=== PATIENT | female | born 1975 | race Caucasian/White ===

== ENCOUNTER → 2018-03-30 10:54 | Outpatient (CLI) | payer MEDICAID, SELFPAY ==
--- NOTE | 2018-03-30 10:56 | MM_ITS ---
MM Dig mamm BI DX w/CAD, US breast RT complete INDICATION: Right breast lump ORDERING PHYSICIAN: Ortiz Flores MD PATIENT AGE: 42 years COMPARISON: 12/24/2014 TECHNIQUE: Diagnostic mammogram performed with problem-solving views in right breast ultrasound FINDINGS: There is dense fibroglandular tissue. Palpable abnormality is reported in the upper outer right breast were a marker was placed. No discrete mammographic abnormality evident in this region. No malignant appearing mass or malignant appearing microcalcification. The left breast has an unremarkable appearance. Right breast ultrasound: Unremarkable. No cystic or solid lesions demonstrated. Small nodes in the right axilla. IMPRESSION: Negative bilateral mammogram and right breast ultrasound. No evidence of malignancy BI-RADS Category: 1 Negative RECOMMENDED FOLLOW-UP: 1YR - 1 YEAR FOLLOW-UP Negative mammogram and negative ultrasound does not exclude the possibility of malignancy especially in this patient with dense breast tissue. If there is indeed a palpable nodule dimension be managed on clinical basis. (A letter has been sent to the patient regarding results of the study.)
== END ==
PROVIDERS: Family Provider Emergency Medicine; PCP Emergency Medicine; Visit Provider Emergency Medicine
DX: N63.11 Unspecified lump in the right breast, upper outer quadrant (principal)
CPT/HCPCS: 76641; 77066

== ENCOUNTER → 2021-07-28 08:08 | Outpatient (CLI) | payer MEDICAID, SELFPAY | PROVIDERS: PCP Emergency Medicine; Visit Provider Nurse Practitioner | DX: Z20.822 Contact with and (suspected) exposure to COVID-19 (principal) | CPT/HCPCS: C9803; U0003; U0005 ==

== ENCOUNTER → 2021-08-02 12:37 | Outpatient (CLI) | payer MEDICAID, SELFPAY | PROVIDERS: PCP Emergency Medicine; Visit Provider Nurse Practitioner | DX: Z20.822 Contact with and (suspected) exposure to COVID-19 (principal) | CPT/HCPCS: C9803; U0003; U0005 ==

== ENCOUNTER → 2021-08-11 17:05 | Outpatient (CLI) | payer MEDICAID, SELFPAY ==
[2021-08-11 19:54] LABS: Barbiturates Screen,Urine Negative ng/ml (<200); Benzodiazepines Screen,Urine Negative ng/ml (<200)
[2021-08-11 19:55] LABS: Cannabinoid Screen,Urine Negative ng/ml (<50)
[2021-08-11 19:56] LABS: Cocaine Screen,Urine Negative ng/ml (<300)
[2021-08-11 19:57] LABS: Methadone Screen,Urine Negative ng/ml (<300); Opiate Screen,Urine Negative ng/ml (<300)
[2021-08-11 19:59] LABS: Phencyclidine Screen,Urine Negative ng/ml (<25)
[2021-08-11 20:01] LABS: Amphetamine/Metha Screen,Urine Negative ng/ml (<1000)
== END ==
PROVIDERS: Visit Provider Physician Assistant Medical
DX: F11.20 Opioid dependence, uncomplicated (principal); F32.2 Major depressive disorder, single episode, severe without psychotic features; F41.1 Generalized anxiety disorder; F14.21 Cocaine dependence, in remission
CPT/HCPCS: 80305

== ENCOUNTER → 2021-08-18 16:24 | Outpatient (CLI) | payer MEDICAID, SELFPAY ==
[2021-08-18 16:59] LABS: Basophils # 0.1 K/mm3 (0-0.2); Eosinophils # 0.1 K/mm3 (0.0-0.4); Eosinophils % 2.3 % (0.1-12.0); Hematocrit 33.5 % (37.0-47.0); Hemoglobin 10.8 g/dL (12.2-16.2); Lymphocytes # 1.9 K/mm3 (0.7-4.5); Lymphocytes % 34.7 % (10-50); Mean Corpuscular HGB Conc 32.2 g/dL (31.8-35.4); Mean Corpuscular Hemoglobin 25.4 pg (27.0-31.2); Mean Corpuscular Volume 78.8 fl (81-99); Mean Platelet Volume 10.2 fl (7.4-10.4); Monocytes # 0.2 K/mm3 (0.1-1.0); Monocytes % 4.4 % (1.7-9.3); Neutrophils # 3.2 K/mm3 (1.8-7.8); Neutrophils % 57.6 % (37.0-80.0); Platelet Count 206 K/mm3 (142-424); Red Blood Count 4.25 M/mm3 (4.20-5.40); Red Cell Distribution Width 15.7 % (11.5-17.5); White Blood Count 5.5 K/mm3 (4.8-10.8)
[2021-08-18 17:12] LABS: Barbiturates Screen,Urine Negative ng/ml (<200)
[2021-08-18 17:13] LABS: Benzodiazepines Screen,Urine Negative ng/ml (<200); Chloride 101 mmol/L (98-107); Potassium 3.7 mmoL/L (3.5-5.1); Sodium 136 mmol/L (136-145)
[2021-08-18 17:14] LABS: Amphetamine/Metha Screen,Urine Negative ng/ml (<1000); Cannabinoid Screen,Urine Negative ng/ml (<50)
[2021-08-18 17:15] LABS: Cocaine Screen,Urine Negative ng/ml (<300); Methadone Screen,Urine Negative ng/ml (<300)
[2021-08-18 17:16] LABS: Alanine Aminotransferase 16 U/L (12-78); Albumin/Globulin Ratio 1.5 (1.1-1.8); Alkaline Phosphatase 52 U/L (38-126); Anion Gap 10.7 mEq/L (5-15); Aspartate Amino Transferase 25 U/L (14-36); Bilirubin,Total 0.3 mg/dl (0.2-1.3); Blood Urea Nitrogen 6 mg/dl (7-17); Carbon Dioxide 28 mmol/L (22.0-30.0); Estimated Glomerular Filt Rate 108 ml/min (>60); GFR (African American) 130 ML/MIN (>60); Globulin 2.7 g/dL (1.3-3.2); Opiate Screen,Urine Negative ng/ml (<300); Total Protein,Serum 6.7 g/dl (6.3-8.2)
[2021-08-18 17:17] LABS: Calcium 8.8 mg/dl (8.4-10.2); Glucose 113 mg/dl (74-100); Phencyclidine Screen,Urine Negative ng/ml (<25)
[2021-08-18 17:48] LABS: Thyroid Stimulating Hormone 0.83 uIU/mL (0.465-4.68)
[2021-08-20 11:18] LABS: HIV Screen 4th Generation wRfx Non Reactive (Non Reactive); Hep A Ab, IgM Negative (Negative); Hepatitis B Core Antibody IgM Negative (Negative); Hepatitis B Surface Antigen Negative (Negative); Hepatitis C Antibody <0.1 s/co ratio (0.0-0.9); Rapid Plasma Reagin Ab Titer Non Reactive (NonRea<1:1)
[2021-08-23 12:44] LABS: Neisseria gonorrhoeae, NAA Negative (Negative)
[2021-08-26 10:19] LABS: Miscellaneous Test SEE COMMENTS
== END ==
PROVIDERS: Visit Provider Physician Assistant Medical
DX: F11.20 Opioid dependence, uncomplicated (principal); F32.2 Major depressive disorder, single episode, severe without psychotic features; F41.1 Generalized anxiety disorder; F14.21 Cocaine dependence, in remission; F13.21 Sedative, hypnotic or anxiolytic dependence, in remission; F51.5 Nightmare disorder; G47.00 Insomnia, unspecified; Z72.51 High risk heterosexual behavior
CPT/HCPCS: 36415; 80053; 80074; 80305; 84443; 85025; 86592; 86703; 87591; G0432

== ENCOUNTER → 2021-08-24 16:09 | Outpatient (CLI) | payer MEDICAID, SELFPAY ==
[2021-08-24 19:13] LABS: Benzodiazepines Screen,Urine Negative ng/ml (<200)
[2021-08-24 19:14] LABS: Amphetamine/Metha Screen,Urine Negative ng/ml (<1000)
[2021-08-24 19:15] LABS: Barbiturates Screen,Urine Negative ng/ml (<200); Cannabinoid Screen,Urine Negative ng/ml (<50)
[2021-08-24 19:16] LABS: Cocaine Screen,Urine Negative ng/ml (<300)
[2021-08-24 19:17] LABS: Methadone Screen,Urine Negative ng/ml (<300); Opiate Screen,Urine Negative ng/ml (<300)
[2021-08-24 19:18] LABS: Phencyclidine Screen,Urine Negative ng/ml (<25)
== END ==
PROVIDERS: PCP Emergency Medicine; Visit Provider Physician Assistant Medical
DX: F11.20 Opioid dependence, uncomplicated (principal); F32.2 Major depressive disorder, single episode, severe without psychotic features; F41.1 Generalized anxiety disorder; F14.21 Cocaine dependence, in remission; F13.21 Sedative, hypnotic or anxiolytic dependence, in remission; F51.5 Nightmare disorder; G47.00 Insomnia, unspecified; Z72.51 High risk heterosexual behavior
CPT/HCPCS: 80305

== ENCOUNTER → 2021-09-01 15:46 | Outpatient (CLI) | payer MEDICAID, SELFPAY ==
[2021-09-01 17:19] LABS: Benzodiazepines Screen,Urine Negative ng/ml (<200)
[2021-09-01 17:20] LABS: Amphetamine/Metha Screen,Urine Negative ng/ml (<1000); Barbiturates Screen,Urine Negative ng/ml (<200)
[2021-09-01 17:21] LABS: Cannabinoid Screen,Urine Negative ng/ml (<50)
[2021-09-01 17:22] LABS: Cocaine Screen,Urine Negative ng/ml (<300); Methadone Screen,Urine Negative ng/ml (<300)
[2021-09-01 17:23] LABS: Opiate Screen,Urine Negative ng/ml (<300); Phencyclidine Screen,Urine Negative ng/ml (<25)
== END ==
PROVIDERS: PCP Emergency Medicine; Visit Provider Physician Assistant Medical
DX: F11.20 Opioid dependence, uncomplicated (principal)
CPT/HCPCS: 80305

== ENCOUNTER → 2021-10-20 17:30 | Outpatient (CLI) | payer MEDICAID, SELFPAY ==
[2021-10-20 18:26] LABS: Basophils # 0.1 K/mm3 (0-0.2); Basophils % 1.4 % (0.1-2.0); Eosinophils # 0.2 K/mm3 (0.0-0.4); Eosinophils % 2.7 % (0.1-12.0); Hematocrit 32.7 % (37.0-47.0); Hemoglobin 10.7 g/dL (12.2-16.2); Lymphocytes # 2.3 K/mm3 (0.7-4.5); Lymphocytes % 39.7 % (10-50); Mean Corpuscular HGB Conc 32.6 g/dL (31.8-35.4); Mean Corpuscular Hemoglobin 24.9 pg (27.0-31.2); Mean Corpuscular Volume 76.3 fl (81-99); Mean Platelet Volume 10.6 fl (7.4-10.4); Monocytes # 0.4 K/mm3 (0.1-1.0); Monocytes % 6.2 % (1.7-9.3); Neutrophils # 2.9 K/mm3 (1.8-7.8); Platelet Count 230 K/mm3 (142-424); Red Blood Count 4.29 M/mm3 (4.20-5.40); Red Cell Distribution Width 16.9 % (11.5-17.5); White Blood Count 5.9 K/mm3 (4.8-10.8)
[2021-10-20 18:31] LABS: Chloride 105 mmol/L (98-107); Potassium 3.3 mmoL/L (3.5-5.1); Sodium 137 mmol/L (136-145)
[2021-10-20 18:34] LABS: Alanine Aminotransferase 16 U/L (12-78); Albumin/Globulin Ratio 1.5 (1.1-1.8); Alkaline Phosphatase 55 U/L (38-126); Anion Gap 9.3 mEq/L (5-15); Aspartate Amino Transferase 26 U/L (14-36); Bilirubin,Total 0.3 mg/dl (0.2-1.3); Blood Urea Nitrogen 8 mg/dl (7-17); Carbon Dioxide 26 mmol/L (22.0-30.0); Estimated Glomerular Filt Rate 77 ml/min (>60); GFR (African American) 93 ML/MIN (>60); Globulin 2.6 g/dL (1.3-3.2); Total Protein,Serum 6.6 g/dl (6.3-8.2)
[2021-10-20 18:35] LABS: Calcium 8.4 mg/dl (8.4-10.2); Glucose 83 mg/dl (74-100)
[2021-10-20 18:53] LABS: HCG,Quantitative < 2 mIU/ml (0-5.42)
== END ==
PROVIDERS: PCP Emergency Medicine; Visit Provider Obstetrics & Gynecology
DX: Z01.812 Encounter for preprocedural laboratory examination (principal); Z11.52 Encounter for screening for COVID-19; N92.0 Excessive and frequent menstruation with regular cycle
CPT/HCPCS: 36415; 80053; 84702; 85025; C9803; U0003; U0005

== ENCOUNTER 2021-10-22 06:57 | Day surgery (SDC) | payer MEDICAID, SELFPAY ==
[2021-10-20 11:23] VITALS: BMI 29.2
[2021-10-22] VITALS (9 sets, daily range): BP systolic 119–148; BP diastolic 57–86; PULSE 52–66; RESP 12–18; TEMP 36.3–36.9; O2SAT 94–100
[2021-10-22 08:01] LABS: Chloride 106 mmol/L (98-107); Sodium 136 mmol/L (136-145)
[2021-10-22 08:02] LABS: Potassium 3.6 mmoL/L (3.5-5.1)
[2021-10-22 08:04] LABS: Blood Urea Nitrogen 11 mg/dl (7-17)
[2021-10-22 08:05] LABS: Anion Gap 8.6 mEq/L (5-15); Calcium 8.1 mg/dl (8.4-10.2); Carbon Dioxide 25 mmol/L (22.0-30.0); Creatinine Clearance Estimated 119 mL/min (50-200); Estimated Glomerular Filt Rate 90 ml/min (>60); GFR (African American) 109 ML/MIN (>60); Glucose 87 mg/dl (74-100)
--- NOTE | 2021-10-22 09:27 | HMH.ANESCL ---
[facility] Anesthesia Checklist - Structural Data Admitted From: Home Planned Operative Procedure/s: hyst,d/c Consent for Planned Operative Procedure(s) Verified: Yes - Additional verifications Anesthesia Reactions: No Hx Blood Transfusions: No Blood Transfusion Reaction: No - Airway Assessment C-Spine Mobility Assessed: Yes TMJ Mobility Assessed: Yes Dentition: Poor Dentition - Neurological Assessment Level of Consciousness: Awake, Alert, Appropriate - Anesthesia Plan Anesthesia Risk discussed: Yes Anesthesia Plan: Verified ASA Class: II Anesthesia Type: General [facility] History I have reviewed the patient's past medical history: Yes Medical History: Denies:: Cancer, Diabetes Mellitus Type 1, Diabetes Mellitus Type 2, Internal Pacemaker, MRSA, Seizures *Have you ever received a pneumonia vaccine?: No *Have you received a flu vaccine this season?: No Other Medical History: Denies: Blood Transfusion Reaction Anesthesia experience/problems:: none Other Surgeries: No: Pacemaker Amputation: No Fractures: Yes - *Social History Last grade of school completed: GED Smoking Status: Current every day smoker Tobacco Type: e-cigarettes # Packs/Day (cigarettes): 1 Alcohol Intake: current Alcohol Intake Frequency:: a few times a month Substance Use Type: crack/cocaine *Occupational Status:: employed Housing: house Household Members: none *Travel in the last 8 weeks: None Family Hx:: Cancer, Heart Attack, Hypertension, Hyperlipidemia, Substance abuse, Alcoholism, Mental illness, Asthma, Anemia
--- NOTE | 2021-10-22 09:29 | P.PN_ITS ---
[facility] Anesthesia Record Part I Intake, IV Amount: 500 Estimated blood loss (mL): 0 Urine output (mL): 0 Blood Pressure: 137/80 SaO2: 95 Pulse Rate: 65 Respiratory Rate: 12 Temperature: 98.3 F Patient is:: Awake, Stable Stable to PACU at:: 09:20
--- NOTE | 2021-10-22 09:53 | P.OP_ITS ---
Date of procedure: 10/22/21 Pre-op Diagnosis:: 1. Heavy menstrual bleeding 2. Dysfunctional uterine bleeding 3. Severe dysmenorrhea Post-op Diagnosis:: same Procedure performed:: D&C Hysteroscopy Novasure endometrial ablation Surgeon:: Merly Salinas MD [employer]FUEL[employer] SUPERVISOR:: Rustam Ojeda Anesthesia: GETA Estimated blood loss (mL): 5 Operative findings:: normal uterine cavity without polyps or submucosal fibroids Operative note:: The patient was taken to the OR where general anesthesia was administered without difficulty. She was prepped/draped in the normal sterile fashion in supine position. The cervix was dilated until hysteroscope could be accomodated. The hysteroscope was introduced through the cervix into the uterus and the cavity surveyed. Diffuse, shaggy endometrium was observed throughout the cavity, but no discrete lesions such as submucosal fibroids or polyps were identified. The Novasure device was introduced into the uterus. The cavity length was measured at 5cm and width at 4.7cm, and the cavity assessment was successful. The endometrial ablation was completed in 102 seconds, and without complication. All instruments were removed from her vagina, she was awakened from anesthesia and taken to PACU in stable condition. Condition: stable Disposition: PACU Specimens:: Endometrial curettings Complications:: none
--- NOTE | 2021-10-22 09:54 | SUR.PHASEI ---
0949- detailed report called to lynn best in post op. 0951- pt left in stable condition with lynn best and lynn jameson in post op.
--- NOTE | 2021-10-25 07:42 | P.PN_ITS ---
[facility] Anesthesia Record Part II Discharge Time: 09:50 Destination: Home PACU nurse assessment reviewed?: Yes Patient Condition:: Good Anesthesia Complications:: None Swallowing reflex intact?: Yes Cyanosis?: No Blood Pressure: 148/82 Pulse Rate: 60 Temperature: 98.4 F Mental Status: Alert & Oriented Pain level:: 3 Nausea and/or vomitting:: None Intake, IV Amount: 0
[2021-10-25 07:43] VITALS: BP 148/82; PULSE 60; TEMP 36.9
== END 2021-10-22 10:34 | disposition home or self-care (01) ==
LOC: OR 06:59
PROVIDERS: PCP Emergency Medicine; Visit Provider Obstetrics & Gynecology
PROC: (CPT 58563; principal; 2021-10-22 08:30)
DX: N92.0 Excessive and frequent menstruation with regular cycle (principal); N94.6 Dysmenorrhea, unspecified; Z98.51 Tubal ligation status; Z72.0 Tobacco use; F14.90 Cocaine use, unspecified, uncomplicated; Z80.9 Family history of malignant neoplasm, unspecified; Z82.3 Family history of stroke; Z82.49 Family history of ischemic heart disease and other diseases of the circulatory system; Z83.438 Family history of other disorder of lipoprotein metabolism and other lipidemia; Z81.1 Family history of alcohol abuse and dependence; Z82.5 Family history of asthma and other chronic lower respiratory diseases; Z83.2 Family history of diseases of the blood and blood-forming organs and certain disorders involving the immune mechanism
CPT/HCPCS: 58563; 36415; 80048; 96374; J2405

== ENCOUNTER → 2021-11-05 16:15 | Outpatient (CLI) | payer MEDICAID, SELFPAY ==
[2021-11-02 18:59] LABS: Alanine Aminotransferase 16 U/L (12-78); Albumin Level 4.1 g/dl (3.5-5.0); Albumin/Globulin Ratio 1.6 (1.1-1.8); Alkaline Phosphatase 48 U/L (38-126); Anion Gap 9.5 mEq/L (5-15); Aspartate Amino Transferase 29 U/L (14-36); Bilirubin,Total 0.4 mg/dl (0.2-1.3); Blood Urea Nitrogen 14 mg/dl (7-17); Carbon Dioxide 25 mmol/L (22.0-30.0); Chloride 106 mmol/L (98-107); Chol/HDL Ratio 2.6 (1-3.5); Cholesterol 159 mg/dl (140-200); Estimated Glomerular Filt Rate 77 ml/min (>60); GFR (African American) 93 ML/MIN (>60); Globulin 2.6 g/dL (1.3-3.2); Glucose 85 mg/dl (74-100); HDL Cholesterol 61 mg/dl (40-60); Potassium 3.5 mmoL/L (3.5-5.1); Sodium 137 mmol/L (136-145); Total Protein,Serum 6.7 g/dl (6.3-8.2); Triglycerides 99 mg/dl (30-150); VLDL Cholesterol 20 mg/dL (0-40)
[2021-11-02 19:10] LABS: Direct LDL Cholesterol 69.02 mg/dL (100-129)
[2021-11-02 19:32] LABS: Thyroid Stimulating Hormone 1.25 uIU/mL (0.465-4.68)
[2021-11-05 17:28] LABS: Basophils # 0.1 K/mm3 (0-0.2); Basophils % 1.9 % (0.1-2.0); Eosinophils # 0.2 K/mm3 (0.0-0.4); Eosinophils % 2.8 % (0.1-12.0); Hematocrit 33.8 % (37.0-47.0); Hemoglobin 11.1 g/dL (12.2-16.2); Lymphocytes # 2.7 K/mm3 (0.7-4.5); Lymphocytes % 36.3 % (10-50); Mean Corpuscular HGB Conc 32.7 g/dL (31.8-35.4); Mean Corpuscular Hemoglobin 24.9 pg (27.0-31.2); Mean Corpuscular Volume 76.1 fl (81-99); Mean Platelet Volume 10.1 fl (7.4-10.4); Monocytes # 0.4 K/mm3 (0.1-1.0); Monocytes % 4.8 % (1.7-9.3); Neutrophils % 54.2 % (37.0-80.0); Platelet Count 255 K/mm3 (142-424); Red Blood Count 4.44 M/mm3 (4.20-5.40); Red Cell Distribution Width 17.2 % (11.5-17.5); White Blood Count 7.4 K/mm3 (4.8-10.8)
[2021-11-05 18:14] LABS: Hemoglobin A1C 5.2 % (4.0-6.0)
== END ==
PROVIDERS: PCP Family Medicine; Visit Provider Family Medicine
DX: F11.20 Opioid dependence, uncomplicated (principal); Z76.89 Persons encountering health services in other specified circumstances; Z83.3 Family history of diabetes mellitus; Z79.899 Other long term (current) drug therapy
CPT/HCPCS: 36415; 80053; 80061; 83036; 84443; 85025

== ENCOUNTER 2021-11-14 12:12 | Emergency (ER) | payer MEDICAID, SELFPAY ==
[2021-11-14 13:13] VITALS: BP 115/79; PULSE 62; RESP 18; TEMP 37.2; O2SAT 100; BMI 29.2
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
[2021-11-14 13:15] VITALS: BP 115/79; PULSE 62; RESP 18; TEMP 37.2
== END 2021-11-14 13:21 | disposition home or self-care (01) ==
PROVIDERS: Emergency Provider Nurse Practitioner Family; PCP Emergency Medicine
DX: Z11.52 Encounter for screening for COVID-19 (principal)
CPT/HCPCS: 99211; C9803; G0463; U0003; U0005

== ENCOUNTER → 2021-12-03 13:47 | Outpatient (CLI) | payer MEDICAID, SELFPAY ==
--- NOTE | 2021-12-03 13:51 | XR_ITS ---
FINAL REPORT CLINICAL HISTORY: hand pain FINDINGS: LEFT HAND 3 views of the left hand were obtained. There is no acute fracture or dislocation. There is mild degenerative change. Soft tissues are unremarkable. IMPRESSION: Mild degenerative change with no acute bony abnormality. Reviewed, Interpreted and Dictated by Miguel Hurtado III, MD Transcribed by Mary Ellen Velasquez Authenticated by Miguel Hurtado III, MD on 12/03/2021 02:50:59 PM [facility]
--- NOTE | 2021-12-03 13:51 | XR_ITS ---
FINAL REPORT CLINICAL HISTORY: hand pain FINDINGS: RIGHT HAND 3 views of the right hand were obtained. There is no acute fracture or dislocation. There is mild degenerative change. Soft tissues are unremarkable. IMPRESSION: Mild degenerative change with no acute bony abnormality. Reviewed, Interpreted and Dictated by Miguel Hurtado III, MD Transcribed by Mary Ellen Velasquez Authenticated by Miguel Hurtado III, MD on 12/03/2021 02:51:01 PM [facility]
== END ==
PROVIDERS: PCP Emergency Medicine; Visit Provider Orthopaedic Surgery
DX: M25.541 Pain in joints of right hand (principal); M25.542 Pain in joints of left hand
CPT/HCPCS: 73130

== ENCOUNTER 2022-06-13 08:11 | Emergency (ER) | payer MEDICAID, SELFPAY ==
[2022-06-13 09:30] VITALS: BP 190/110; PULSE 67; RESP 20; TEMP 36.7; O2SAT 97; BMI 27.1
--- NOTE | 2022-06-13 09:52 | EXP.UTC ---
Discharge Plan Disposition Patient Disposition: Home, Self-Care Condition: Good Prescriptions Prescriptions: No Action buprenorphine-naloxone 8-2 mg tablet, sublingual 1 tab SUBLINGUAL BID bupropion HCl 75 mg tablet 75 mg PO TID PRN (Reason: pain) Rx Instructions: administer 6 hours apart Referrals Follow up/Referrals: Wojciech Foster MD [Primary Care Provider] - See instructions Activity Restrictions/Add. Instructions Additional Instructions/Restrictions: Suture instructions: ?You have required stitches today. Please read the following instructions so you know how to care for them: ?1. Keep wound area dry for the first 24 hours. 2?? May clean gently with mild soap and water, after 48 hours to prevent crusting over suture knots. 3. You may shower if your provider gives permission but do not take a bath until the skin is healed.. 4. Never leave a wet dressing or Band-Aid on your stitches as this allows bacteria to reach the area and may cause infection. Band-aids can cause the wound to sweat and not recommended to wear for long periods of time Watch for signs of infection: ? Increasing redness, tenderness or warmth around the suture site ? Unusual swelling around the site ? Appearance of pus around each suture or any red streaks ? Fever If you develop any of the above signs or symptoms of infection, Follow up with Family Physician immediately 5. Suture removal in _7-10___days 6. Return to [facility] or follow up with family doctor for removal. This can be done by any medical provider dur?ing regular hours on Monday through Monday, by appointment. Clinical Impressions Clinical Impression: Laceration Instructions Patient Instructions: DI for Laceration Repair, DI for Laceration Repair -- Simple Discharge ED Provider: Nargis Brink [facility] [place] HPI General Stated complaint: LT hand middle finger lesion @home AO 06/13 Mode of Arrival: Ambulatory Source of Information: Patient Limitations: No Limitations Time Seen by Provider: 06/13/22 09:52 Description of Symptoms (Recalled from Triage Doc. by RN): PATIENT C/O LACERATION TO LEFT MIDDLE FINGER AFTER CUTTING IT ON A BROKEN COFFEE CUP THIS MORNING. SHE STATES HE IS UP TO DATE ON TDAP HEENT Symptoms (Recalled from RN notes): No Resp Symptoms (Recalled from RN notes): No Skin Symptoms (Recalled from RN notes): Yes MS Symptoms (Recalled from RN notes): No Functional Status (Recalled from RN notes): WNL History of Present Illness Provider Complaint: Patient states that she was washing dishes this morning when a coffee cup broke and cut her on her left middle finger States that she has been having trouble getting it to stop bleeding so she came in Related Data Home Medications Medication Instructions Recorded Confirmed bupropion HCl 75 mg tablet 75 mg PO TID PRN pain 09/06/21 12/03/21 buprenorphine 8 mg-naloxone 2 mg 1 tab sublingual BID Pain 10/14/21 12/03/21 sublingual tablet Allergies Allergy/AdvReac Type Severity Reaction Status Date / Time No Known Drug Allergies Allergy Unknown Verified 12/03/21 14:24 Worker's Comp Is this a Worker's Comp case?: No PFSH PFSH Medical History (Updated 06/13/22 @ 10:02 by Nargis Brink APRN) Anxiety Depression Hypertension Surgical History (Updated 06/13/22 @ 09:41 by Chikis Golden RN) History of tubal ligation Social History (Updated 06/13/22 @ 09:42 by Chikis Golden RN) Smoking Status: Current every day smoker tobacco type: e-cigarettes alcohol intake: current substance use type: crack/cocaine current occupational status: employed Travel in the last 8 weeks: None household members: none housing: house current occupation: [employer] caffeine: Yes ROS Obtained: Yes All systems reviewed & no additional complaints except as documented and Yes Systems reviewed as appropriate & no additional complaints except as documented Constitutional Constitutional: Reports system r
[2022-06-13 10:17] VITALS: BP 190/110; PULSE 67; RESP 20; TEMP 36.7; O2SAT 97
== END 2022-06-13 10:23 | disposition home or self-care (01) ==
PROVIDERS: Emergency Provider Nurse Practitioner; PCP Internal Medicine Adolescent Medicine
DX: S61.213A Laceration without foreign body of left middle finger without damage to nail, initial encounter (principal); W26.8XXA Contact with other sharp object(s), not elsewhere classified, initial encounter
CPT/HCPCS: 12001; 99212; G0463

== ENCOUNTER 2023-11-18 11:18 | Emergency (ER) | payer MEDICAID, SELFPAY ==
[2023-11-18 12:06] VITALS: BP 164/94; PULSE 77; RESP 18; TEMP 36.7; O2SAT 97; BMI 32.2
--- NOTE | 2023-11-18 12:16 | EXP.UTC ---
Discharge Plan Disposition Patient Disposition: Home, Self-Care Condition: Good Prescriptions Prescriptions: New amoxicillin 500 mg tablet 500 mg PO BID 10 Days Qty: 20 0RF fluticasone propionate 50 mcg/actuation spray,suspension 1 spray intranasal DAILY Qty: 9.9 0RF No Action buprenorphine-naloxone 8-2 mg tablet, sublingual 1 tab SUBLINGUAL BID bupropion HCl 75 mg tablet 75 mg PO TID PRN (Reason: pain) Rx Instructions: administer 6 hours apart Referrals Follow up/Referrals: Ernie López DO [Primary Care Provider] - See instructions Activity Restrictions/Add. Instructions Additional Instructions/Restrictions: Start antibiotic as soon as possible and be sure to take as ordered for full length of time even though he should start feeling better in 24-48 hours. Tylenol or Motrin as needed for pain or fever Encourage fluids, water, Gatorade, Powerade, Pedialyte if infant/toddler/child Warm compresses often helps when placed over ear Return immediately for new or worsening symptoms no noticeable improvement in 48-72 hours and in 10-14 days to ensure the ears are return to baseline. Follow-up with primary care Clinical Impressions Clinical Impression: Acute maxillary sinusitis, Otitis media Instructions Patient Instructions: DI for Sinusitis Discharge ED Provider: Rosalia ([facility]Megan [facility] [place] HPI General Stated complaint: left ear pain Mode of Arrival: Ambulatory Source of Information: Patient Limitations: No Limitations Time Seen by Provider: 11/18/23 12:16 Description of Symptoms (Recalled from Triage Doc. by RN): LEFT EAR PAIN AND CONGESTION HEENT Symptoms (Recalled from RN notes): Yes Resp Symptoms (Recalled from RN notes): Yes Skin Symptoms (Recalled from RN notes): No MS Symptoms (Recalled from RN notes): No Functional Status (Recalled from RN notes): NA History of Present Illness Provider Complaint: 48 yr old female presents for sore throat, left ear pain, thick green congestion Related Data Home Medications Medication Instructions Recorded Confirmed bupropion HCl 75 mg tablet 75 mg PO TID PRN pain 09/06/21 12/03/21 buprenorphine 8 mg-naloxone 2 mg 1 tab sublingual BID Pain 10/14/21 12/03/21 sublingual tablet Previous Rx's Medication Instructions Recorded amoxicillin 500 mg tablet 500 mg PO BID 10 days #20 tabs 11/18/23 fluticasone propionate 50 1 spray intranasal DAILY #9.9 mL 11/18/23 mcg/actuation nasal spray,suspension Allergies Allergy/AdvReac Type Severity Reaction Status Date / Time No Known Drug Allergies Allergy Unknown Verified 12/03/21 14:24 Worker's Comp Is this a Worker's Comp case?: No [facility] Disclaimer: The information contained in this section may have been updated after the patient was seen, as this information can be updated by other users. Medical History (Reviewed 11/18/23 @ 12:19 by Megan Lindsey ([facility]), [employer]) Depression Anxiety Hypertension Surgical History (Reviewed 11/18/23 @ 12:19 by Megan Lindsey ([facility]), [employer]) History of tubal ligation Social History (Reviewed 11/18/23 @ 12:19 by Megan Lindsey ([facility] [employer]) Smoking Status: Current every day smoker tobacco type: e-cigarettes alcohol intake: current alcohol intake frequency: a few times a month substance use type: crack/cocaine current occupational status: employed Travel in the last 8 weeks: None household members: none housing: house current occupation: [employer] caffeine: Yes ROS Obtained: Yes All systems reviewed & no additional complaints except as documented Constitutional Constitutional: Reports system reviewed and no additional complaints, except as documented Eyes Eyes: Reports system reviewed and no additional complaints, except as documented ENT Ears, Nose, Mouth, and Throat: Reports system reviewed and no additional complaints, except as documented, Reports as per HPI, Reports otalgia, Reports nasal congestion, Reports nasal discharge, Reports post nasal drip, Reports sinus pain and Reports sore throat Cardiovascular Cardiovascular: Reports system reviewed and no additional complaints, except as documented Respiratory Respiratory: Reports system reviewed and no additional complaints, except as documented Gastrointestinal Gastrointestingal: Reports system reviewed and no additional complaints, except as documented Integumentary/Breasts Skin/Breast: Reports system reviewed and no additional complaints, except as documented Neurologic Neurologic: Reports system reviewed and no additional complaints, except as documented Hematologic/Lymphatic Henatologic/Lymphatic: Reports system reviewed and no additional complaints, except as documented Allergic/Immunologic Allergic/Immunologic: Reports system reviewed and no additional complaints, except as documented Physical Exam General General appearance: alert and in no apparent distress Head Head exam: atraumatic Eye Eye exam: Present normal appearance and PERRL ENT ENT exam: Present mucous membranes moist Expanded ENT Exam TM/Canal exam: Left TM: erythema, bulging and loss of landmarks Nose exam: Present sinus tenderness Throat exam: Present tonsillar erythema Respiratory Respiratory exam: Present normal lung sounds bilaterally Cardiovascular Cardiovascular exam: Present regular rate and normal rhythm Extremities Exam Extremities exam: Present normal inspection Neurological Exam Neurological exam: Present alert and oriented X3 Psychiatric Psychiatric exam: Present normal affect Skin Skin exam: Present warm and intact Lymphatic Lymphatic Findings: no adenopathy Medical Decision Making Medical Records Medical records reviewed: Yes I reviewed the patient's medical records. Bijan Inquiry Pt receiving controlled substance: No Bijan was queried for this patient: No Vital Signs: 11/18/23 12:06 Temperature 98.1 F Temperature Source Oral Pulse Rate [Radial] 77 Respiratory Rate 18 Blood Pressure [Right Arm] 164/94 H Blood Pressure Mean [Right Arm] 117 Blood Pressure Source [Right Arm] Automatic Cuff Blood Pressure Position [Right Arm] Sitting 02 Sat by Pulse Oximetry 97 Oxygen Delivery Method Room Air Lab Data Lab results reviewed: Yes I reviewed the patient's lab results.
[2023-11-18 12:44] VITALS: BP 164/94; PULSE 77; RESP 18; TEMP 36.7; O2SAT 97
== END 2023-11-18 12:38 | disposition home or self-care (01) ==
PROVIDERS: Emergency Provider Nurse Practitioner Family; PCP Internal Medicine
DX: H66.92 Otitis media, unspecified, left ear (principal); J01.00 Acute maxillary sinusitis, unspecified; R07.0 Pain in throat; R09.81 Nasal congestion
CPT/HCPCS: 99212; 99214; G0463

== ENCOUNTER 2024-01-23 14:36 | Outpatient (CLI) | payer MEDICAID, SELFPAY ==
[2024-01-23 18:10] LABS: Basophils # 0.1 K/mm3 (0-0.2); Basophils % 1.4 % (0.1-2.0); Eosinophils # 0.3 K/mm3 (0.0-0.4); Eosinophils % 3.9 % (0.1-12.0); Hematocrit 45.5 % (37.0-47.0); Lymphocytes # 2.4 K/mm3 (0.7-4.5); Lymphocytes % 30.1 % (10-50); Mean Corpuscular HGB Conc 33.1 g/dL (31.8-35.4); Mean Corpuscular Hemoglobin 30.7 pg (27.0-31.2); Mean Corpuscular Volume 92.8 fl (81-99); Mean Platelet Volume 9.5 fl (7.4-10.4); Monocytes # 0.4 K/mm3 (0.1-1.0); Monocytes % 4.4 % (1.7-9.3); Neutrophils # 4.8 K/mm3 (1.8-7.8); Neutrophils % 60.3 % (37.0-80.0); Platelet Count 235 K/mm3 (142-424); Red Cell Distribution Width 14.9 % (11.5-17.5)
[2024-01-23 18:39] LABS: Chloride 106 mmol/L (98-107); Sodium 138 mmol/L (136-145)
[2024-01-23 18:42] LABS: Alanine Aminotransferase 18 U/L (12-78); Albumin Level 4.2 g/dl (3.5-5.0); Albumin/Globulin Ratio 1.4 (1.1-1.8); Alkaline Phosphatase 79 U/L (38-126); Aspartate Amino Transferase 26 U/L (14-36); Bilirubin,Total 0.3 mg/dl (0.2-1.3); Blood Urea Nitrogen 10 mg/dl (7-17); Carbon Dioxide 27 mmol/L (22.0-30.0); Cholesterol 229 mg/dl (140-200); Estimated Glomerular Filt Rate 89 ml/min (>60); GFR (African American) 108 ML/MIN (>60); Globulin 3.1 g/dL (1.3-3.2); Glucose 93 mg/dl (74-100); Total Protein,Serum 7.3 g/dl (6.3-8.2); Triglycerides 173 mg/dl (30-150); VLDL Cholesterol 35 mg/dL (0-40)
[2024-01-23 18:43] LABS: Chol/HDL Ratio 4.3 (1-3.5); HDL Cholesterol 53 mg/dl (40-60)
[2024-01-23 18:46] LABS: 25-OH Vitamin D, Total 30.3 ng/mL (30-100)
[2024-01-23 18:54] LABS: Direct LDL Cholesterol 122.87 mg/dL (100-129)
[2024-01-24 10:24] LABS: Thyroid Stimulating Hormone 2.85 uIU/mL (0.465-4.68)
[2024-01-24 11:30] LABS: HIV (1&2) Antibody Rapid NON REACTIVE
[2024-01-25 11:04] LABS: HCV Ab Non Reactive (Non Reactive)
== END 2024-01-23 23:59 | disposition home or self-care (01) ==
LOC: LAB.DROPOF 01-24 14:36
PROVIDERS: PCP Nurse Practitioner Family; Visit Provider Nurse Practitioner Family
DX: Z00.00 Encounter for general adult medical examination without abnormal findings (principal); H66.002 Acute suppurative otitis media without spontaneous rupture of ear drum, left ear; F17.210 Nicotine dependence, cigarettes, uncomplicated
CPT/HCPCS: 80050; 80053; 80061; 82306; 84443; 85025

== ENCOUNTER 2024-04-16 09:11 | Emergency (ER) | payer MEDICAID, SELFPAY ==
[2024-04-16 09:39] VITALS: BP 156/100; PULSE 79; RESP 16; TEMP 36.7; O2SAT 98; BMI 34.4
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
[2024-04-16 09:48] LABS: Coronavirus 19, PCR Not Detected (NotDetected); Influenza A, PCR Not Detected (NotDetected); Influenza B, PCR Not Detected (NotDetected)
[2024-04-16 10:03] VITALS: BP 156/100; PULSE 79; RESP 16; TEMP 36.7; O2SAT 98
== END 2024-04-16 10:04 | disposition home or self-care (01) ==
PROVIDERS: Emergency Provider Nurse Practitioner; PCP Nurse Practitioner Family
DX: R05.9 Cough, unspecified (principal); R50.9 Fever, unspecified; R09.81 Nasal congestion; B34.9 Viral infection, unspecified
CPT/HCPCS: 87636; 99212; 99214; G0463

== ENCOUNTER 2024-08-01 09:32 | Emergency (ER) | payer MEDICAID, SELFPAY ==
[2024-08-01 09:45] VITALS: BP 140/90; PULSE 133; RESP 19; TEMP 37.7; O2SAT 97; BMI 33.6
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
[2024-08-01 10:03] LABS: UTC Influenza A Antigen Negative (Negative)
[2024-08-01 10:04] LABS: UTC Influenza B Antigen Negative (Negative)
[2024-08-01 10:07] VITALS: BP 140/90; PULSE 133; RESP 19; TEMP 37.7; O2SAT 97
[2024-08-01 10:15] LABS: Coronavirus 19, PCR Not Detected (NotDetected); Human Rhinovirus Not Detected (NotDetected); Influenza A, PCR Not Detected (NotDetected); Influenza B, PCR Not Detected (NotDetected); Respiratory Syncytial Virus Not Detected (NotDetected)
== END 2024-08-01 10:10 | disposition home or self-care (01) ==
PROVIDERS: Emergency Provider Nurse Practitioner; PCP Nurse Practitioner Family
DX: R11.2 Nausea with vomiting, unspecified (principal); R05.9 Cough, unspecified
CPT/HCPCS: 87631; 87804; 99213; G0381

== ENCOUNTER 2024-08-04 12:05 | Emergency (ER) | payer MEDICAID, SELFPAY ==
[2024-08-04 12:17] VITALS: BP 145/85; PULSE 84; RESP 18; TEMP 37.2; O2SAT 97; BMI 33.8
--- NOTE | 2024-08-04 12:17 | XR_ITS ---
PROCEDURE INFORMATION: Exam: XR Chest Exam date and time: 08/04/2024 12:30 PM Age: 49 years old Clinical indication: Cough and fever and shortness of breath TECHNIQUE: Imaging protocol: Radiologic exam of the chest. Views: 2 views. COMPARISON: No relevant prior studies available. FINDINGS: Lungs: Unremarkable. No consolidation. Pleural spaces: Unremarkable. No pleural effusion. No pneumothorax. Heart/Mediastinum: Unremarkable. No cardiomegaly. Bones/joints: Unremarkable. IMPRESSION: No acute findings.
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
[2024-08-04 13:38] LABS: Coronavirus 19, PCR Not Detected (NotDetected); Influenza A, PCR Not Detected (NotDetected); Influenza B, PCR Not Detected (NotDetected)
[2024-08-04 13:39] VITALS: BP 145/85; PULSE 84; RESP 18; TEMP 37.2
== END 2024-08-04 13:40 | disposition home or self-care (01) ==
PROVIDERS: Emergency Provider Nurse Practitioner Family; PCP Nurse Practitioner Family
DX: J20.9 Acute bronchitis, unspecified (principal); J32.9 Chronic sinusitis, unspecified; B34.9 Viral infection, unspecified
CPT/HCPCS: 71046; 87636; 99213; G0381

== ENCOUNTER 2025-03-26 08:41 | Outpatient (CLI) | payer MEDICAID, SELFPAY ==
[2025-03-26 09:00] LABS: Hematocrit 42.9 % (37.0-47.0); Hemoglobin 14.9 g/dL (12.2-16.2); Immature Granulocytes % 0.2 %; Mean Corpuscular HGB Conc 34.7 g/dL (31.8-35.4); Mean Corpuscular Hemoglobin 31.5 pg (27.0-31.2); Mean Corpuscular Volume 90.7 fl (81-99); Nucleated Red Blood Cells % 0 %; Platelet Count 213 K/mm3 (142-424); Red Blood Count 4.73 M/mm3 (4.20-5.40); Red Cell Distribution Width-SD 44.6 fL; White Blood Count 6.3 K/mm3 (4.8-10.8)
--- OUTSIDE RECORDS SUMMARY | 2025-03-26 09:00 | XMS_ITS | Clinical Summary ---
Author Organization [facility] Address [address] [place] [address] Care Team Providers Care Traffic Ii Manager Name Role Phone Unavailable Primary Care Provider Unavailabl e Social History Tobacco Use Types Packs/Day Years Used Date Smoking Tobacco: Never Assessed Abuse Screen Answer Date Recorded Unsafe at Home or Work/School Not on file Feels Threatened by Someone? Not on file 05/2023 Does Anyone Keep You from Co ntacting Others or Doint Things Outside the Home? Not on file 05/03/2023 Physical Sign of Abuse Present Not on file 1 Housing Stability Answer Date Recorded Current Living Arrangements Not on file 04/23 Potentially Unsafe Housing Conditions Not on ayala e 05/03/2023 Family and Community Support Answer Mitch e Recorded Help with Day-to-Day Activities Not on file 05/03/2023 Lonely or Isolated Not on file 05/03/2023 Employment Answer Date Recorded Do you want help finding or keeping work or a matias b? Not on file 05/03/2023 Disabilities Answer Date Recorded Concentrating, Remembering, or Making Decisions Difficulty Not on file 05/03/2023 Doing Errands Independently Difficulty Not on fi le 05/03/2023 Education Answer Date Recorded Help with school or training? Not on file Preferred Language Not on file 05/03/2023 Comments Unknown Sex and Gender Information Value Date Recorded Sex Assigned at Not on file Legal Sex Female 12:13 PM EDT Gender Identity Not on file Sexual Orientation Not on file Last Filed Vital Signs Vital Sign Reading Time Taken Comments Blood Pressure 142/82 10/01/2014 11:12 AM EDT Pulse - - Temperature - - Respiratory Rate - - Oxygen Saturation - - Inhaled Oxygen Concentration - - Weight 67.6 kg (149 lb 0.1 oz) 10/01/2014 11:12 AM EDT Height 160 cm (5' 3 ) 10/01/2014 11:12 AM EDT Body Mass Index 26.4 10/01/2014 11:12 AM EDT Plan of Treatment Health Maintenance Due Date Last Done Comments ANNUAL PHYSICAL 1975 Annual Gynecologic Pelvic an d Breast Exam 1975 HEPATITIS C SCREENING 1975 TDAP/TD VACCINES (1 - Tdap) 1994 MAMMOGRAM 2015 COLOGUARD 2020 COLON CANCER SCREENING 5 YEA R SIGMOIDOSCOPY 2020 COLONOSCOPY 2020 [address]AL CANCER SCREENING 2020 CT COLONOGRAPHY 2020 FECAL OCCULT BLOOD TEST 2020 FIT Testing (1 year) 2020 COVID-19 Vaccine ( - 2023-2 5 season) 2024 INFLUENZA VACCINE 04/23/2025 Pneumococcal Vaccine 0-49 Aged Out No longer eligible based on patient's age to complete this topic
[2025-03-26 09:35] LABS: Alanine Aminotransferase 32 U/L (12-78); Albumin Level 4.4 g/dl (3.5-5.0); Albumin/Globulin Ratio 1.5 (1.1-1.8); Alkaline Phosphatase 70 U/L (38-126); Anion Gap 10.2 mEq/L (5-15); Aspartate Amino Transferase 43 U/L (14-36); Bilirubin,Total 0.7 mg/dl (0.2-1.3); Blood Urea Nitrogen 11 mg/dl (7-17); Calcium 9.4 mg/dl (8.4-10.2); Carbon Dioxide 27 mmol/L (22.0-30.0); Chloride 106 mmol/L (98-107); Cholesterol 221 mg/dl (140-200); Creatinine,Serum 0.70 mg/dl (0.52-1.04); Estimated Glomerular Filt Rate 89 ml/min (>60); GFR (African American) 108 ML/MIN (>60); Globulin 2.9 g/dL (1.3-3.2); Glucose 92 mg/dl (74-100); HDL Cholesterol 61 mg/dl (40-60); Potassium 4.2 mmoL/L (3.5-5.1); Sodium 139 mmol/L (136-145); Total Protein,Serum 7.3 g/dl (6.3-8.2); Triglycerides 166 mg/dl (30-150)
[2025-03-26 10:04] LABS: Thyroid Stimulating Hormone 3.48 uIU/mL (0.465-4.68)
== END 2025-03-26 23:59 | disposition home or self-care (01) ==
LOC: LAB 08:43
PROVIDERS: PCP Nurse Practitioner Family; Visit Provider Nurse Practitioner Family
DX: F41.9 Anxiety disorder, unspecified (principal); R20.0 Anesthesia of skin; R20.2 Paresthesia of skin
CPT/HCPCS: 36415; 80053; 80061; 84443; 85025

== ENCOUNTER 2025-04-23 15:40 | Outpatient (CLI) | payer MEDICAID, SELFPAY ==
--- NOTE | 2025-04-23 15:42 | XR_ITS ---
FINAL REPORT CLINICAL HISTORY: right wrist pain COMPARISON: None FINDINGS: RIGHT WRIST Three views demonstrate no acute fracture or dislocation. The visualized joint spaces are normally aligned. The soft tissues are unremarkable. IMPRESSION: No acute bony abnormality. Reviewed, Interpreted and Dictated by Riley Garcia MD Transcribed by Radha Stoll Authenticated and . [facility]
--- NOTE | 2025-04-23 15:42 | XR_ITS ---
FINAL REPORT CLINICAL HISTORY: left wrist pain COMPARISON: None FINDINGS: LEFT WRIST Three views demonstrate no acute fracture or dislocation. The visualized joint spaces are normally aligned. The soft tissues are unremarkable. IMPRESSION: No acute bony abnormality. Reviewed, Interpreted and Dictated by Riley Garcia MD Transcribed by Radha Stoll Authenticated and [facility]
--- OUTSIDE RECORDS SUMMARY | 2025-04-23 15:42 | XMS_ITS | Clinical Summary ---
Author Organization [facility] Address [address] [place] [address] Care Team Providers Care Deicer Inspector Electric Name Role Phone Unavailable Primary Care Provider [...] TEST 2020 FIT Testing (1 year) 2020 INFLUENZA VACCINE 02/21/2025 Pneumococcal Vaccine 0-49 Aged Out No longer eligible based on patient's age to complete this topic
== END 2025-04-23 23:59 | disposition home or self-care (01) ==
LOC: RAD 15:41
PROVIDERS: PCP Nurse Practitioner Family; Visit Provider Physician Assistant Surgical
DX: M25.531 Pain in right wrist (principal); M25.532 Pain in left wrist
CPT/HCPCS: 73110

== ENCOUNTER 2025-05-13 15:19 | Outpatient (CLI) | payer MEDICAID, SELFPAY ==
--- OUTSIDE RECORDS SUMMARY | 2025-05-13 15:22 | XMS_ITS | Clinical Summary ---
Author Organization [facility] Address [address] [place] [address] Care Team Providers Care Warehouse Laborer Name Role Phone Unavailable Primary Care Provider [...]
--- NOTE | 2025-05-13 15:30 | US_ITS ---
FINAL REPORT CLINICAL HISTORY: palp area on lt forehead COMPARISON: None FINDINGS: Limited sonographic images were obtained of the soft tissues in the left forehead at the region of reported palpable abnormality. No fluid collection identified. There is no obvious mass. IMPRESSION: No discrete lesion identified. Reviewed, Interpreted and Dictated by Mario Franks MD Transcribed by Radha Stoll Authenticated and [facility]
== END 2025-05-13 23:59 | disposition home or self-care (01) ==
LOC: RAD 15:20
PROVIDERS: PCP Nurse Practitioner Family; Visit Provider Nurse Practitioner Family
DX: E04.9 Nontoxic goiter, unspecified (principal); R22.1 Localized swelling, mass and lump, neck
CPT/HCPCS: 76536

== ENCOUNTER 2025-06-13 15:15 | Outpatient (CLI) | payer MEDICAID, SELFPAY ==
--- OUTSIDE RECORDS SUMMARY | 2025-06-13 15:18 | XMS_ITS | Clinical Summary ---
Author Organization [facility] Address [address] [place] [address] Care Team Providers Care Glass Blowing Instructor Name Role Phone Unavailable Primary Care Provider [...]
--- NOTE | 2025-06-13 15:30 | US_ITS ---
FINAL REPORT TECHNIQUE: Limited sonographic imaging of the neck was obtained. CLINICAL HISTORY: pt feels tickling feeling on neck FINDINGS: Right submandibular salivary gland and right parotid gland are unremarkable. There is no mass. There are normal size, benign appearing right cervical lymph nodes. Left submandibular and left parotid gland are unremarkable. There are normal-sized, benign-appearing left cervical lymph nodes. There is no fluid collection or mass. IMPRESSION: Unremarkable exam. Reviewed, Interpreted and Dictated by Shabnam Morse MD Transcribed by Pratibha Charles Authenticated and [facility]
== END 2025-06-13 23:59 | disposition home or self-care (01) ==
LOC: RAD 15:16
PROVIDERS: PCP Nurse Practitioner Family; Visit Provider Nurse Practitioner Family
DX: R22.1 Localized swelling, mass and lump, neck (principal)
CPT/HCPCS: 76536